=== PATIENT | female | born 1965 | race Caucasian/White ===

== ENCOUNTER 2016-07-16 09:17 | Outpatient (CLI) | payer BC ==
[2016-07-16] MEDS ORDERED: ACETAMINOPHEN 325 MG TAB PO PRN (12:37)
--- NOTE | 2016-07-16 13:05 | CT ---
EXAM DESCRIPTION: Post myelogram CT cervical Spine CLINICAL HISTORY: M54.12 COMPARISON: Lumbar-cervical myelogram prior to CT scan. TECHNIQUE: Spiral, axial 2.5 mm scans through the cervical spine after cervical-lumbar myelogram using 15 cc of intrathecal nonionic contrast. Axial 1.25 mm reconstructions. Coronal-sagittal 2.0 mm Reconstructions. No immediate Complications. No adverse contrast reactions. FINDINGS: Contrast is noted in the included CSF spaces at the base of the skull. Electrodes are noted in a "Y" configuration, in the left lateral ventral epidural space and the posterior epidural space at the C2-C5 level, narrowing the posterior lateral epidural space. Atlantoaxial joint is unremarkable. Atlantooccipital joint is unremarkable. C2-3: Minimal hypertrophic changes of the right facet joint. Tiny posterior disc bulge. Canal and neural foramina are patent. Electrodes posterior midline and left lateral epidural space. C3-4: Trace anterolisthesis. Marked hypertrophy of the right facet with uncinate spur resulting in near neural foraminal stenosis on the right and narrowing of the right ventral epidural space. Moderate right paracentral canal narrowing. Left neuroforamen patent. Minimal hypertrophy of the left facet. Electrodes posterior left paracentral epidural space. C4-5: Tiny posterior disc bulge. No disc space narrowing. Moderate hypertrophy of the right facet and minimal hypertrophy of the left facet. Moderate right neural foraminal narrowing and mild left neural foraminal narrowing. Anterior endplate ridging. Electrodes posterior left paracentral epidural space. C5-6: Disc space narrowing and grade 1 anterolisthesis. Posterior disc bulge. Right anterior epidural defect containing no contrast, 3.5 mm AP, most likely disc protrusion. Impressing on the right ventral cord. Right paracentral mild canal stenosis. Near stenosis right neural foramen. Moderate right facet hypertrophy and severe left facet hypertrophy. Moderate left neural foraminal narrowing. Electrode wires posterior midline. C6-7: Trace anterolisthesis. Mild canal narrowing. Moderate left facet hypertrophy and mild right facet hypertrophy. Moderate left neural foraminal narrowing and mild right neural foraminal narrowing. Disc space preserved. Electrode wires posterior midline. C7-T1: Mild disc space narrowing. No significant canal narrowing. Mild right Facet hypertrophy and moderate left facet hypertrophy. Right neuroforamen patent with mild left neural foraminal narrowing. Electrode wires posterior midline. No compression deformities of the vertebral bodies. Transverse and posterior elements are intact. IMPRESSION: 1. Multilevel facet degeneration with canal and neural foraminal narrowing. Multiple levels of anterolisthesis. 2. Right anterior epidural filling defect in the contrast at C5-6 most likely right disc protrusion encroaching on the right cord and possibly right C6 nerve. Correlate for right C6 radiculopathy. No stenosis right neural foramen. Significant bilateral facet hypertrophy. Grade 1 anterolisthesis. 3. Tiny posterior C4-5 disc bulge. Bilateral facet hypertrophy and neural foraminal narrowing. 4. Grade 1 anterolisthesis, C3-4. Significant right facet hypertrophy. Mild right uncinate spur. Near neural foraminal stenosis on the right and narrowing of the right ventral epidural space. Correlate for right C4 radiculopathy. 5. Electrodes and electrode wires in the epidural space as noted. Electronically signed by: Abundio Vizcarra MD 07/16/2016 1:04 PM CDT
[2016-07-16 13:19] VITALS: TEMP 97.5; O2SAT 100
--- NOTE | 2016-07-16 13:52 | RAD ---
EXAM DESCRIPTION: MYELOGRAM, CERVICAL SPINE CLINICAL HISTORY: CERVICAL RADICULOPATHY COMPARISON: Post cervical myelogram CT scan following this procedure. TECHNIQUE: The procedure was explained to the patient with risks and benefits. The patient gave verbal and written consent. Patient prone on the tilting fluoroscopic table. L3-4 interspinous fossa localized by fluoroscopy. Epidural electrodes are seen at the L3-4 level. Overlying skin was marked and prepped with sterile solution and sterile draping applied. Subcutaneous and deep 5 mL lidocaine injection. 3-inch, 22-gauge spinal needle introduced into the interspinous fossa under fluoroscopic guidance. Access to the subarachnoid space was difficult. Initially blood-tinged CSF fluid appeared in the hub of the needle, confirming placement in the subarachnoid space. The fluid became clear. 15 mL of intrathecal contrast was injected under fluoroscopic visualization. Observed contrast material in the lumbar subarachnoid space. AP and bilateral anterior oblique images obtained with patient 0 degrees tilt, head elevated. Tilted patient 15 degrees down until contrast seen in cervical subarachnoid space. 66 posterior Images obtained.Total fluoroscopy time was 3.3 minutes. DAP 232.96 mGy. FINDINGS: Pain management electrodes are seen in the posterior epidural space at L2-3 and L3 level. Wires in the thoracic and cervical spine with pain management electrodes from C2 through C5. Contrast seen in the subarachnoid space in the lumbar thoracic and cervical levels. AP and bilateral oblique images of the lumbar spine show no mass effect on the contrast or branching nerve root sleeves. IMPRESSION: Successful, fluoroscopic guided, lumbar puncture followed by lumbar and cervical myelogram. Patient transferred to CT scan in supine position, for cervical post myelogram CT scan. Patient transferred to nurse observation for two hours after CT scan. Following orders were given to nurse Pennie Walker RN. Discharged in good condition with no complaints. Postprocedure instructions were given to the nurse by phone. Electronically signed by: Abundio Vizcarra MD 07/16/2016 1:50 PM CDT
[2016-07-16 14:06] VITALS: BP 112/74
== END 2016-07-16 13:40 | disposition home or self-care (01) ==
LOC: CT 09:17 → TXRM 13:40
PROVIDERS: ATTEND Psychiatry & Neurology Neurology
DX: M54.12 Radiculopathy, cervical region (principal)